=== PATIENT | female | born 1970 | race Caucasian/White ===

== ENCOUNTER → 2016-12-12 | Outpatient (CLI) | payer OTHER, MEDICAID ==
[2016-12-14 14:14] LABS: CMV DNA PCR QUANT Positive < 200 IU/mL (Negative)
== END ==
LOC: OD 13:15
PROVIDERS: ATTEND Internal Medicine
DX: Z94.1 Heart transplant status (principal); Z48.298 Encounter for aftercare following other organ transplant; B25.9 Cytomegaloviral disease, unspecified
CPT/HCPCS: 36415; 87496

== ENCOUNTER → 2016-12-20 | Outpatient (CLI) | payer OTHER, MEDICAID | LOC: OD 13:20 | PROVIDERS: ATTEND Internal Medicine | DX: Z94.1 Heart transplant status (principal); Z48.298 Encounter for aftercare following other organ transplant | CPT/HCPCS: 36415; 87496 ==

== ENCOUNTER → 2016-12-28 | Outpatient (CLI) | payer OTHER, MEDICAID ==
[2017-01-01 14:54] LABS: CMV DNA PCR QUANT Negative (Negative)
== END ==
LOC: OD 16:22
PROVIDERS: ATTEND Internal Medicine
DX: Z94.1 Heart transplant status (principal); Z48.21 Encounter for aftercare following heart transplant
CPT/HCPCS: 36415; 87496

== ENCOUNTER 2017-01-08 09:50 | Emergency (ER) | payer OTHER, MEDICAID ==
[2017-01-08] MEDS ORDERED: NORMAL SALINE 1000 ML 1,000 ML IV ONE (10:52)
[2017-01-08] MEDS ORDERED: ONDANSETRON HCL INJ/PF 4 MG/2 ML SDV IV ONE (10:52)
[2017-01-08] MEDS ORDERED: MORPHINE SULFATE 10 MG/ML INJ IV ONE ×2 (10:53→13:50)
--- NOTE | 2017-01-08 10:58 | ER Document Report ---
ED General - General Chief Complaint: Vomiting Stated Complaint: VOMITING Time seen by provider: 10:54 Mode of Arrival: Ambulatory Information source: Patient Notes: 46-year-old female with abrupt onset of fever to 102 been in this morning along with cough productive of brown sputum with occasional red streaks beginning last night. Patient reports multiple episodes of vomiting this morning but has not vomited anything that clearly looks like blood. She denies diarrhea or melena. She denies dysuria. She is status post heart transplant at [facility] October 10. She reports intermittent sensation of heart fluttering since then and has an appointment at [facility] tomorrow for follow-up. She reports her daughter was diagnosed with flu 2 days ago. Patient reports severe diffuse headache which has been present this morning. She denies earache, sore throat, abdominal pain, back pain for. She reports burning anterior chest pain with coughing but not otherwise. Patient reports she also has history multiple myeloma and is not on treatment for that now because of a heart transplant. 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 She also reports history of ulcerative colitis Physical Exam: General: Alert, appears uncomfortable. HEENT: Normocephalic. Atraumatic. PERRLA. Extraocular movements intact. Oropharynx clear. Neck: Supple. Non-tender. Respiratory: No respiratory distress. Clear and equal breath sounds bilaterally. Well-healed midline incision Cardiovascular: Regular rate and rhythm. Abdominal: Normal Inspection. Soft, non-tender. No distension. Normal Bowel Sounds. Back: Non-tender. No deformity or step off. Extremities: Moves all four extremities. Upper extremities: Normal inspection. Non-tender. Normal color. Normal ROM. Normal temperature. Lower extremities: Normal inspection. Non-tender. No edema. Normal color. Normal ROM. Normal temperature. Neurological: Speech clear mentation normal Psychological: Normal affect. Normal Mood. Skin: Warm. Dry. Normal color. TRAVEL OUTSIDE OF THE [place] IN LAST 30 DAYS: No - Related Data Allergies/Adverse Reactions: codeine [Codeine] Allergy (Verified 04/21/16 11:52) Vomiting Past Medical History - Social History Smoking Status: Never Smoker Chew tobacco use (# tins/day): No Frequency of alcohol use: None Drug Abuse: None Family History: Reviewed & Not Pertinent Patient has suicidal ideation: No Patient has homicidal ideation: No Pulmonary Medical History: Reports: Hx Asthma Renal/ Medical History: Denies: Hx Peritoneal Dialysis GI Medical History: Reports: Hx Gastroesophageal Reflux Disease, Hx Ulcerative Colitis Past Surgical History: Reports: Hx Cardiac Surgery - Heart transplant 2015 at [facility], Hx Section, Hx Cholecystectomy, Hx Orthopedic Surgery - carpal tunnel LT wrist, Hx Tonsillectomy Other: Amyloidosis Ulcerative colitis Multiple myeloma Review of Systems - Review of Systems Constitutional: See HPI EENT: See HPI Cardiovascular: See HPI Respiratory: See HPI Gastrointestinal: See HPI Genitourinary: denies: Burning, Dysuria Musculoskeletal: denies: Back pain Hematologic/Lymphatic: denies: Swollen glands Neurological/Psychological: denies: Weakness, Numbness Physical Exam - Vital signs Vitals: Temp Pulse Resp BP Pulse Ox 99.2 F 92 24 H 140/79 H 96 01/08/17 10:05 01/08/17 10:05 01/08/17 10:05 01/08/17 10:05 01/08/17 10:05 Course - Re-evaluation Re-evalutation: 01/08/17 14:23 Patient reports she was prescribed Tamiflu by her physicians at [facility] and started that last night. Some of the vomiting she is having now could be related to that. She reports she has Zofran at home. Patient is feeling better after nebulizer treatment IV fluids and IV medication. Her headache and believe is related to her fluids and not industrial sales representative of intra-cranial pathology. Patient scuffle with discharge and will continue Zofran and Tamiflu that she or has prescribed and follow with her physicians tomorrow at [facility] 01/08/17 14:26 Her magnesium was noted to be low and this was supplemented prior to discharge. This may be contributing to her sensation of heart fluttering but she is demonstrated no arrhythmia here - Vital Signs Vital signs: Temp Pulse Resp BP Pulse Ox 99.0 F 91 18 148/78 H 98 01/08/17 14:15 01/08/17 14:15 01/08/17 14:15 01/08/17 14:15 01/08/17 14:15 - Laboratory Result Diagrams: 01/08/17 11:09 01/08/17 11:09 Laboratory results interpreted by me: 01/08/17 01/08/17 11:09 11:09 RDW 18.0 H Band Neutrophils % 14 H Lymphocytes % (Manual) 10 L Monocytes % (Manual) 17 H Abs Monocytes (Manual) 1.6 H Est GFR (Non-Af Amer) 59 L Magnesium 1.3 L Influenza A positive - Diagnostic Test Radiology reviewed: Image reviewed, Reports reviewed - EKG Interpretation by Me Additional EKG results interpreted by me: 01/08/17 14:22 EKG reviewed by me so shows sinus at 95 building stonecutter bundle-branch block left anterior fascicular block. Prior EKG predate her heart transplant Discharge - Discharge Clinical Impression: Influenza, Status post heart transplant, Hypomagnesemia Condition: Stable Disposition: HOME, SELF-CARE Additional Instructions: Viral Syndrome The physician has diagnosed a viral infection. Viruses not only cause "colds," but can cause many different symptoms including generalized aching, fever, headache, cough, diarrhea, nausea, vomiting, and fatigue. The treatment, for the most part, is simply relief of symptoms. This means that antibiotics are usually not given. Rest, fluids, pain medications and, occasionally, medication for the specific symptoms that are most bothersome will be prescribed. Use good handwashing to avoid passing the virus to others. Shared toys should be cleaned with disinfectant. Clean the toilets, sinks, and counter surfaces in bathrooms. Launder clothing in hot water. Contact the physician if you develop any new or unusual symptoms such as severe headache, stiff neck, high fever, chest pain, productive cough, or shortness of breath. You should be rechecked if you don't see marked improvement within seven to 10 days. Keep your appointment tomorrow at [facility] Referrals: SVETA GOMEZ MD [Primary Care Provider] - Follow up as needed
[2017-01-08] MEDS ORDERED: IPRATROPIUM/ALBUTEROL 0.5-2.5 MG/3 ML AMPUL NEB ONE (11:49)
[2017-01-08 11:52] LABS: HEMATOCRIT 38.5 % (36.0-47.0); HEMOGLOBIN 12.4 g/dL (12.0-15.5); HGB HCT DIFFERENCE -1.3; MEAN CORPUSCULAR HEMOGLOBIN 30.1 pg (27.0-33.4); MEAN CORPUSCULAR HGB CONC 32.3 g/dL (32.0-36.0); MEAN CORPUSCULAR VOLUME 93 fl (80-97); RED BLOOD COUNT 4.13 10^6/uL (3.72-5.28); WHITE BLOOD COUNT 9.2 10^3/uL (4.0-10.5)
[2017-01-08 12:14] LABS: ALANINE AMINOTRANSFERASE 32 U/L (9-52); ALBUMIN 4.5 g/dL (3.5-5.0); ALKALINE PHOSPHATASE 61 U/L (38-126); ANION GAP 9 (5-19); ASPARTATE AMINO TRANSFERASE 29 U/L (14-36); BILIRUBIN,TOTAL 0.5 mg/dL (0.2-1.3); BLOOD UREA NITROGEN 14 mg/dL (7-20); CALCIUM 9.9 mg/dL (8.4-10.2); CARBON DIOXIDE 28 mmol/L (22-30); CHLORIDE 101 mmol/L (98-107); CREATININE RESULT 1.02 mg/dL (0.52-1.25); GLUCOSE 90 mg/dL (75-110); LIPASE 61.6 U/L (23-300); MAGNESIUM 1.3 mg/dL (1.6-2.3); POTASSIUM 4.2 mmol/L (3.6-5.0); SODIUM 138.3 mmol/L (137-145); TOTAL PROTEIN 7.5 g/dL (6.3-8.2)
[2017-01-08 12:23] LABS: BASOPHILS % (MANUAL) 0 % (0-2); EOSINOPHILS % (MANUAL) 0 % (0-6); LYMPHOCYTES % (MANUAL) 10 % (13-45); TOTAL CELLS COUNTED 100
[2017-01-08 12:24] LABS: ANISOCYTOSIS 1+; TOXIC GRANULATION SLIGHT
[2017-01-08 12:25] LABS: BAND NEUTROPHILS % (MANUAL) 14 % (3-5)
[2017-01-08] MEDS ORDERED: OSELTAMIVIR PHOSPHATE 75 MG CAPSULE PO ONE (12:41)
[2017-01-08 12:53] LABS: APPEARANCE,URINE CLEAR; BILIRUBIN,URINE NEGATIVE (NEGATIVE); GLUCOSE, URINE NEGATIVE (NEGATIVE); KETONES,URINE NEGATIVE (NEGATIVE); LEUKOCYTE ESTERASE,URINE NEGATIVE (NEGATIVE); NITRITE,URINE NEGATIVE (NEGATIVE); PROTEIN,URINE NEGATIVE (NEGATIVE); URINE SPECIFIC GRAVITY 1.013; UROBILINOGEN,URINE NEGATIVE mg/dL (<2.0)
[2017-01-08] MEDS: MAGNESIUM SULFATE/D5W 100 ML IV SCH ×2 (13:04→13:48)
[2017-01-08] MEDS ORDERED: PROMETHAZINE HCL INJ 25 MG/1 ML VIAL IV ONE (13:50)
[2017-01-08 14:16] VITALS: BP 148/78
--- NOTE | 2017-01-08 23:59 | EKG REPORT ---
SEVERITY:- ABNORMAL ECG - SINUS RHYTHM RBBB AND LPFB : Confirmed by: Dre Magaña 08-Jan-2017 23:58:46
== END 2017-01-08 14:40 | disposition home or self-care (01) ==
LOC: ER 09:50
DX: J11.1 Influenza due to unidentified influenza virus with other respiratory manifestations (principal); E83.42 Hypomagnesemia; Z94.1 Heart transplant status; I45.4 Nonspecific intraventricular block; I44.4 Left anterior fascicular block; R05 Cough; R11.10 Vomiting, unspecified; R09.89 Other specified symptoms and signs involving the circulatory and respiratory systems; R51 Headache; R07.89 Other chest pain; E85.9 Amyloidosis, unspecified; C90.00 Multiple myeloma not having achieved remission; J45.909 Unspecified asthma, uncomplicated; Z88.5 Allergy status to narcotic agent; Z87.19 Personal history of other diseases of the digestive system; Z90.49 Acquired absence of other specified parts of digestive tract
CPT/HCPCS: 93005; 96376; 94640; 99284; 96361; 96375; 96365; 36415; 87040; 87086; 83690; 83735; 85025; 87088; 80053; 81001; 87186; 87804; 71010; 93010; J2270; J3475; J2550; J2405; J7030; J7620

== ENCOUNTER 2017-01-11 11:17 | Emergency (ER) | payer OTHER, MEDICAID ==
--- NOTE | 2017-01-11 11:52 | ER Document Report ---
ED Medical Screen (RME) - General Chief Complaint: Nausea Stated Complaint: WEAKNESS Mode of Arrival: Ambulatory Information source: Patient Notes: 46 y/o F presents to ED c/o generalized weakness, chills, and dysuria. Reports was diagnosed with influenza 3 days ago but symptoms persistent. Reports hx of heart transplant 3 months ago. Denies chest pain or sob. I have greeted and performed a rapid initial assessment of this patient. A comprehensive ED assessment and evaluation of the patient, analysis of test results and completion of the medical decision making process will be conducted by additional ED providers. TRAVEL OUTSIDE OF THE [place] IN LAST 30 DAYS: No - Related Data Allergies/Adverse Reactions: codeine [Codeine] Allergy (Verified 01/11/17 11:48) Vomiting Past Medical History - Social History Chew tobacco use (# tins/day): No Frequency of alcohol use: None Drug Abuse: None Pulmonary Medical History: Reports: Hx Asthma Renal/ Medical History: Denies: Hx Peritoneal Dialysis GI Medical History: Reports: Hx Gastroesophageal Reflux Disease, Hx Ulcerative Colitis Past Surgical History: Reports: Hx Cardiac Surgery - Heart transplant 2015 at [place], Hx Section, Hx Cholecystectomy, Hx Orthopedic Surgery - carpal tunnel LT wrist, Hx Tonsillectomy Physical Exam - Vital signs Vitals: Temp Pulse Resp BP Pulse Ox 98.7 F 98 20 104/69 96 01/11/17 11:36 01/11/17 11:36 01/11/17 11:36 01/11/17 11:36 01/11/17 11:36 - General General appearance: Alert In distress: None - Respiratory Respiratory status: No respiratory distress - Cardiovascular Pulses: Normal: Radial Normal capillary refill: Yes Course - Vital Signs Vital signs: Temp Pulse Resp BP Pulse Ox 98.7 F 98 20 104/69 96 01/11/17 11:36 01/11/17 11:36 01/11/17 11:36 01/11/17 11:36 01/11/17 11:36
--- NOTE | 2017-01-11 12:41 | EKG REPORT ---
SEVERITY:- ABNORMAL ECG - SINUS RHYTHM RBBB AND LPFB PROBABLE ANTEROSEPTAL INFARCT, AGE INDETERM : Confirmed by: Dre Magaña 11-Jan-2017 12:40:57
[2017-01-11 12:51] LABS: APPEARANCE,URINE SLIGHTLY-CLOUDY; BILIRUBIN,URINE NEGATIVE (NEGATIVE); GLUCOSE, URINE NEGATIVE (NEGATIVE); KETONES,URINE NEGATIVE (NEGATIVE); LEUKOCYTE ESTERASE,URINE TRACE (NEGATIVE); NITRITE,URINE NEGATIVE (NEGATIVE); PROTEIN,URINE 30 mg/dL (NEGATIVE); UROBILINOGEN,URINE NEGATIVE mg/dL (<2.0)
[2017-01-11 12:52] LABS: HEMATOCRIT 40.3 % (36.0-47.0); HEMOGLOBIN 13.1 g/dL (12.0-15.5); MEAN CORPUSCULAR HGB CONC 32.6 g/dL (32.0-36.0); MEAN CORPUSCULAR VOLUME 92 fl (80-97); RED BLOOD COUNT 4.38 10^6/uL (3.72-5.28); RED CELL DISTRIBUTION WIDTH 17.7 % (11.5-14.0); WHITE BLOOD COUNT 10.4 10^3/uL (4.0-10.5)
[2017-01-11 13:09] LABS: ALANINE AMINOTRANSFERASE 44 U/L (9-52); ALKALINE PHOSPHATASE 81 U/L (38-126); ANION GAP 13 (5-19); ASPARTATE AMINO TRANSFERASE 26 U/L (14-36); BILIRUBIN,TOTAL 0.5 mg/dL (0.2-1.3); BLOOD UREA NITROGEN 33 mg/dL (7-20); CALCIUM 10.1 mg/dL (8.4-10.2); CARBON DIOXIDE 26 mmol/L (22-30); CHLORIDE 98 mmol/L (98-107); CREATININE RESULT 2.04 mg/dL (0.52-1.25); GLUCOSE 116 mg/dL (75-110); MAGNESIUM 1.4 mg/dL (1.6-2.3); POTASSIUM 4.5 mmol/L (3.6-5.0); SODIUM 136.5 mmol/L (137-145); TOTAL PROTEIN 7.8 g/dL (6.3-8.2)
[2017-01-11] MEDS ORDERED: NORMAL SALINE 1000 ML 1,000 ML IV ONE ×2 (13:22→16:30)
--- NOTE | 2017-01-11 13:23 | ER Document Report ---
ED Respiratory Problem - General Chief Complaint: Nausea Stated Complaint: WEAKNESS Time seen by provider: 13:23 Mode of Arrival: Ambulatory Information source: Patient Notes: 46 yo female c/o worsening heart flutters, weakness, low apetite, nausea, and congested cough since saturday, had vomiting and diarrhea until saturday. Used Albuterol MDI helps her get stronger breaths is SOB. Hx asthma, amyloidosis, Heart failure ( transplant at [facility] 10-10-16), taje immunosupressants, Ulcerative colitis, asthma, fibromyalgia, multiple myoloma. Dx Influenza A on in ER has been taking tamiflu 75mg bid since then. No hx DE. Urine culture from January 08 shows 50-60,000 colonies of Escherichia coli that was not sensitive to Cipro that she took 4 weeks ago. She still has symptoms of dysuria frequency and pelvic discomfort. She was told to contact her transplant doctor prior to any medications the urine was sensitive to Rocephin I will wait until the chest x-ray is done. Taking septra (for transplant) but not sensitive to that either. TRAVEL OUTSIDE OF THE [place] IN LAST 30 DAYS: No - Related Data Allergies/Adverse Reactions: codeine [Codeine] Allergy (Verified 01/11/17 11:48) Vomiting Past Medical History - General Information source: Patient - Social History Smoking Status: Never Smoker Chew tobacco use (# tins/day): No Frequency of alcohol use: None Drug Abuse: None Lives with: Family Family History: Reviewed & Not Pertinent Patient has suicidal ideation: No Patient has homicidal ideation: No - Medical History Notes: multiple myoloma - Past Medical History Cardiac Medical History: Reports: Hx Congestive Heart Failure - prior to heart transplant Pulmonary Medical History: Reports: Hx Asthma Renal/ Medical History: Denies: Hx Peritoneal Dialysis GI Medical History: Reports: Hx Gastroesophageal Reflux Disease, Hx Ulcerative Colitis Past Surgical History: Reports: Hx Cardiac Surgery - Heart transplant 2015 at [place], Hx Section, Hx Cholecystectomy, Hx Orthopedic Surgery - carpal tunnel LT wrist, Hx Tonsillectomy Review of Systems - Review of Systems Constitutional: See HPI EENT: See HPI Cardiovascular: No symptoms reported Respiratory: See HPI Gastrointestinal: No symptoms reported Genitourinary: No symptoms reported Female Genitourinary: No symptoms reported Musculoskeletal: No symptoms reported Skin: No symptoms reported Hematologic/Lymphatic: No symptoms reported Neurological/Psychological: No symptoms reported Physical Exam - Vital signs Vitals: Temp Pulse Resp BP Pulse Ox 98.7 F 98 20 104/69 96 01/11/17 11:36 01/11/17 11:36 01/11/17 11:36 01/11/17 11:36 01/11/17 11:36 Interpretation: Normal - General General appearance: Alert, Other - mild pale - HEENT Head: Normocephalic, Atraumatic Eyes: Normal Conjunctiva: Normal Pupils: PERRL Tympanic membrane: Normal Mucous membranes: Dry Neck: Supple. No: Lymphadenopathy - Respiratory Respiratory status: No respiratory distress Chest status: Nontender Breath sounds: Normal, Productive cough, Wheezing - insp/exp coarse, clears with cough. No: Rales Chest palpation: Normal - Cardiovascular Rhythm: Regular Heart sounds: Normal auscultation Murmur: No - Abdominal Inspection: Normal Distension: No distension Bowel sounds: Normal Tenderness: Nontender Organomegaly: No organomegaly - Back Back: Normal, Nontender. No: CVA tenderness - Extremities General upper extremity: Normal inspection, Nontender, Normal color, Normal ROM , Normal temperature General lower extremity: Normal inspection, Nontender, Normal color, Normal ROM , Normal temperature, Normal weight bearing. No: Carol's sign - Neurological Neuro grossly intact: Yes Cognition: Normal Orientation: AAOx4 [place] Coma Scale Eye Opening: Spontaneous [place] Coma Scale Verbal: Oriented [place] Coma Scale Motor: Obeys Commands [place] Coma Scale Total: 15 Speech: Normal Motor strength normal: LUE, RUE, LLE, RLE Sensory: Normal - Psychological Associated symptoms: Normal affect, Normal mood - Skin Skin Temperature: Warm Skin Moisture: Dry Skin Color: Normal Skin irregularity: negative: Rash Course - Re-evaluation Re-evalutation: 01/11/17 13:[address] bautista about the EKG, conduction changes due to heart transplant, no change from 01-08-17. NSR, RBBB and LPFB. 01/11/17 15:31 chest xray is negative. insp/exp wheeze bilateral. consult dr. leon, calling dr. ganesh grayson the cardiac transplant. rr 18, pulse ox 98 %. 01/11/17 15:42 dr ganesh grayson will admit pt to [facility] transplant service for dr. jeniffer Soni. I asked him about steroids, 60mg solumedrol, rocephin 1 gram OK, urine culture pengind, no to getting sputum culture, they will do it at [facility] 01/11/17 16:35 [facility] has room assignemtn bed [id number], [facility]. trying to arrange transport. 01/11/17 18:24 pt up to bathroom, looks better, awaiting word on jacques eta to get pt and take to [facility] [id number] 01/11/17 18:59 lungs less wheezing, has eaten some. tylenol added for fever. to 99.9 - Vital Signs Vital signs: Temp Pulse Resp BP Pulse Ox 99.5 F 98 25 H 117/75 95 01/11/17 19:00 01/11/17 11:36 01/11/17 17:01 01/11/17 18:01 01/11/17 18:01 - Laboratory Result Diagrams: 01/11/17 12:19 01/11/17 12:19 Laboratory results interpreted by me: 01/11/17 01/11/17 01/11/17 12:19 12:19 12:19 RDW 17.7 H Band Neutrophils % 6 H Lymphocytes % (Manual) 2 L Monocytes % (Manual) 15 H Metamyelocytes % 2 H Abs Neuts (Manual) 8.5 H Abs Lymphs (Manual) 0.3 L Abs Monocytes (Manual) 1.6 H Sodium 136.5 L BUN 33 H Creatinine 2.04 H Est GFR ( Amer) 32 L Est GFR (Non-Af Amer) 26 L Glucose 116 H Magnesium 1.4 L NT-Pro-B Natriuret Pep Urine Protein 30 H Ur Leukocyte Esterase TRACE H 01/11/17 12:19 RDW Band Neutrophils % Lymphocytes % (Manual) Monocytes % (Manual) Metamyelocytes % Abs Neuts (Manual) Abs Lymphs (Manual) Abs Monocytes (Manual) Sodium BUN Creatinine Est GFR ( Amer) Est GFR (Non-Af Amer) Glucose Magnesium NT-Pro-B Natriuret Pep 959 H Urine Protein Ur Leukocyte Esterase - Transfer of Care Care transferred to following provider: Jacques [address] at 1901 Discharge - Discharge Clinical Impression: Influenza due to influenza virus, type A, human, Acute kidney injury, Dehydration, Bronchitis, Urinary tract infection Condition: Stable Disposition: [facility] Referrals: SVETA GOMEZ MD [Primary Care Provider] - Follow up as needed
[2017-01-11 13:27] LABS: BAND NEUTROPHILS % (MANUAL) 6 % (3-5); BASOPHILS % (MANUAL) 0 % (0-2); EOSINOPHILS % (MANUAL) 0 % (0-6); LYMPHOCYTES % (MANUAL) 2 % (13-45); TOTAL CELLS COUNTED 100
[2017-01-11 13:30] LABS: ANISOCYTOSIS 1+
[2017-01-11] MEDS ORDERED: IPRATROPIUM/ALBUTEROL 0.5-2.5 MG/3 ML AMPUL NEB ONE (13:34)
[2017-01-11 14:44] LABS: CREATINE KINASE MB 0.85 ng/mL (<4.55)
[2017-01-11 14:48] LABS: TROPONIN I 0.018 ng/mL
[2017-01-11] MEDS ORDERED: ALBUTEROL SULFATE 0.083% NEB 2.5 MG/3 ML AMPUL NEB ONE (15:31)
[2017-01-11] MEDS ORDERED: CEFTRIAXONE 1 GM/D5W RTU 50 ML IV ONE (15:37)
[2017-01-11] MEDS ORDERED: METHYLPREDNISOLONE INJ 125 MG/2 ML SDV IV ONE (15:40)
[2017-01-11] MEDS ORDERED: OSELTAMIVIR PHOSPHATE 75 MG CAPSULE PO ONE (17:36)
[2017-01-11] MEDS ORDERED: ACETAMINOPHEN 325 MG TABLET PO ONE (18:50)
--- NOTE | 2017-01-11 23:27 | ER Document Report ---
Doctor's Note Notes: 01/11/17 23:27 Patient is resting comfortably, stable vital signs, no complaints at present time, transport team is in the emergency room to take patient to [place] for further evaluation and treatment, patient stable for transport
[2017-01-12 09:05] VITALS: BP 97/59
== END 2017-01-11 23:00 | disposition short-term general hospital (02) ==
LOC: ER 11:17
DX: J11.1 Influenza due to unidentified influenza virus with other respiratory manifestations (principal); N17.9 Acute kidney failure, unspecified; N39.0 Urinary tract infection, site not specified; I45.2 Bifascicular block; I49.8 Other specified cardiac arrhythmias; E86.0 Dehydration; R53.1 Weakness; R63.0 Anorexia; R11.0 Nausea; R05 Cough; R50.9 Fever, unspecified; R06.02 Shortness of breath; J45.909 Unspecified asthma, uncomplicated; Z94.1 Heart transplant status; Z85.79 Personal history of other malignant neoplasms of lymphoid, hematopoietic and related tissues; Z79.2 Long term (current) use of antibiotics; Z88.5 Allergy status to narcotic agent
CPT/HCPCS: 93005; 94640 ×2; 99285; 96361; 96375; 96365; 36415; 87040; 82553; 82550; 83735; 85025; 80053; 81001; 84484; 83605; 83880; 71020; 93010; J2930; J3490; J7030; J0696; J7620

== ENCOUNTER 2017-03-05 11:49 | Emergency (ER) | payer MEDICARE, OTHER, MEDICAID ==
[2017-03-05] MEDS ORDERED: ONDANSETRON 4 MG TAB.RAPDIS PO ONE (12:52)
--- NOTE | 2017-03-05 12:54 | ER Document Report ---
ED Medical Screen (RME) - General Chief Complaint: Weakness Stated Complaint: NAUSEA,LETHARGIC Time seen by provider: 12:54 Mode of Arrival: Wheelchair Information source: Patient Notes: 46 yo post heart transplant that takes immunosuppresants dx uti at [facility] at heart recheck visit last week. Taking antibiotic sensitive to the urine culture , changed recently. Just doesn't feel well, the low abdominal pain radiated to low back, now has some diarrhea, generalized bodyaches, nausea, vomited. TRAVEL OUTSIDE OF THE U[place]S. IN LAST 30 DAYS: No - Related Data Allergies/Adverse Reactions: codeine [Codeine] Allergy (Verified 03/05/17 11:57) Vomiting Past Medical History - Past Medical History Cardiac Medical History: Reports: Hx Congestive Heart Failure - prior to heart transplant Pulmonary Medical History: Reports: Hx Asthma Renal/ Medical History: Denies: Hx Peritoneal Dialysis GI Medical History: Reports: Hx Gastroesophageal Reflux Disease, Hx Ulcerative Colitis Past Surgical History: Reports: Hx Cardiac Surgery - Heart transplant 2015 at [place], Hx Section, Hx Cholecystectomy, Hx Orthopedic Surgery - carpal tunnel LT wrist, Hx Tonsillectomy - Immunizations Hx Diphtheria, Pertussis, Tetanus Vaccination: Yes Physical Exam - Vital signs Vitals: Temp Pulse Resp BP Pulse Ox 98.5 F 98 18 150/87 H 96 03/05/17 11:59 03/05/17 11:59 03/05/17 11:59 03/05/17 11:59 03/05/17 11:59 Course - Vital Signs Vital signs: Temp Pulse Resp BP Pulse Ox 98.5 F 98 18 150/87 H 96 03/05/17 11:59 03/05/17 11:59 03/05/17 11:59 03/05/17 11:59 03/05/17 11:59
[2017-03-05 13:26] LABS: HEMATOCRIT 31.9 % (36.0-47.0); HEMOGLOBIN 10.6 g/dL (12.0-15.5); HGB HCT DIFFERENCE -0.1; MEAN CORPUSCULAR HEMOGLOBIN 30.2 pg (27.0-33.4); MEAN CORPUSCULAR HGB CONC 33.1 g/dL (32.0-36.0); MEAN CORPUSCULAR VOLUME 91 fl (80-97); RED CELL DISTRIBUTION WIDTH 13.3 % (11.5-14.0); WHITE BLOOD COUNT 9.2 10^3/uL (4.0-10.5)
[2017-03-05 13:32] LABS: APPEARANCE,URINE CLEAR; BILIRUBIN,URINE NEGATIVE (NEGATIVE); GLUCOSE, URINE NEGATIVE (NEGATIVE); KETONES,URINE NEGATIVE (NEGATIVE); LEUKOCYTE ESTERASE,URINE NEGATIVE (NEGATIVE); NITRITE,URINE POSITIVE (NEGATIVE); PROTEIN,URINE 30 mg/dL (NEGATIVE); URINE SPECIFIC GRAVITY 1.016
[2017-03-05 13:38] LABS: ALANINE AMINOTRANSFERASE 32 U/L (9-52); ALBUMIN 4.4 g/dL (3.5-5.0); ALKALINE PHOSPHATASE 69 U/L (38-126); ANION GAP 14 (5-19); ASPARTATE AMINO TRANSFERASE 24 U/L (14-36); BILIRUBIN,TOTAL 1.1 mg/dL (0.2-1.3); BLOOD UREA NITROGEN 27 mg/dL (7-20); CALCIUM 9.9 mg/dL (8.4-10.2); CARBON DIOXIDE 23 mmol/L (22-30); CHLORIDE 103 mmol/L (98-107); CREATININE RESULT 2.49 mg/dL (0.52-1.25); GLUCOSE 117 mg/dL (75-110); SODIUM 140.3 mmol/L (137-145); TOTAL PROTEIN 9.6 g/dL (6.3-8.2)
[2017-03-05 13:54] LABS: BASOPHILS % (MANUAL) 0 % (0-2); EOSINOPHILS % (MANUAL) 0 % (0-6); LYMPHOCYTES % (MANUAL) 7 % (13-45); TOTAL CELLS COUNTED 100
[2017-03-05 13:55] LABS: RBC MORPHOLOGY COMMENT NORMO-CYTIC/CHROMIC
[2017-03-05] MEDS ORDERED: NORMAL SALINE 1000 ML 1,000 ML IV ONE (14:59)
[2017-03-05] MEDS ORDERED: CEFTRIAXONE 1 GM/D5W RTU 50 ML IV ONE (15:01)
--- NOTE | 2017-03-05 15:07 | ER Document Report ---
ED General - General Chief Complaint: Weakness Stated Complaint: NAUSEA,LETHARGIC Mode of Arrival: Wheelchair Notes: Patient had a heart transplant at [facility] 5 months ago. Patient is here because she's been feeling sick for the past week. She is having some lower mid abdominal pains. Also painful with urination. She was seen at [facility] on and a urinalysis was obtained. She was started on Augmentin on Saturday , but had nausea and vomiting on Saturday and based upon her culture results, she was changed to Macrobid twice a day starting Saturday. She's continued to have urinary discomfort and lower abdominal pains. Appetite has been poor with limited oral intake of food or fluids. May have had a slight fever. She is now having pains in her back/flank regions. Patients medical history is more complicated because she has amyloidosis and also has multiple myeloma and is awaiting stem cell transplant. She also has ulcerative colitis. History of cholecystectomy and C-sections. Surgery for carpal tunnel syndrome. TRAVEL OUTSIDE OF THE [place] IN LAST 30 DAYS: No - Related Data Allergies/Adverse Reactions: codeine [Codeine] Allergy (Verified 03/05/17 11:57) Vomiting Past Medical History - General Information source: Patient - Social History Smoking Status: Never Smoker Frequency of alcohol use: None Drug Abuse: None Family History: Reviewed & Not Pertinent Patient has suicidal ideation: No Patient has homicidal ideation: No - Past Medical History Cardiac Medical History: Reports: Hx Congestive Heart Failure - prior to heart transplant Pulmonary Medical History: Reports: Hx Asthma Malignancy Medical History: Reports: Other - History of multiple myeloma GI Medical History: Reports: Hx Gastroesophageal Reflux Disease, Hx Ulcerative Colitis Past Surgical History: Reports: Hx Cardiac Surgery - Heart transplant 2015 at [facility], Hx Section, Hx Cholecystectomy, Hx Orthopedic Surgery - carpal tunnel LT and RT wrist, Hx Tonsillectomy - Immunizations Hx Diphtheria, Pertussis, Tetanus Vaccination: Yes Review of Systems - Review of Systems Notes: REVIEW OF SYSTEMS: CONSTITUTIONAL : Feels that she has had a low-grade fever. EENT: Denies eye, ear, nose or mouth or throat pain or other symptoms. CARDIOVASCULAR: Denies chest pain. RESPIRATORY: Denies cough, chest congestion, or shortness of breath. GASTROINTESTINAL: See history of present illness. GENITOURINARY: See history of present illness.. MUSCULOSKELETAL: Denies neck pain. Denies joint pain or swelling. SKIN: Denies rash or skin lesions. NEUROLOGICAL: Denies LOC or altered mental status. Denies headache. Denies sensory loss or motor deficits. ALL OTHER SYSTEMS REVIEWED AND NEGATIVE. Physical Exam - Vital signs Vitals: Temp Pulse Resp BP Pulse Ox 98.5 F 98 18 150/87 H 96 03/05/17 11:59 03/05/17 11:59 03/05/17 11:59 03/05/17 11:59 03/05/17 11:59 Interpretation: Normal - Notes Notes: PHYSICAL EXAMINATION: GENERAL: Well-appearing, in no acute distress. Vital signs are normal. HEAD: Atraumatic, normocephalic. ENT: oropharynx clear without exudates. Moist mucous membranes. NECK: Normal range of motion, supple. LUNGS: Breath sounds clear and equal bilaterally. HEART: Regular rate and rhythm without murmurs. ABDOMEN: Soft, nontender. No guarding or rebound. BACK: No tenderness throughout entire back. EXTREMITIES: Normal range of motion without pain. NEUROLOGICAL: Normal speech. Normal sensory, motor, and reflex exams. Awake, alert, and oriented x3. Cranial nerves normal. PSYCH: Normal mood, normal affect. SKIN: Warm, dry, no rashes. Course - Re-evaluation Re-evalutation: 03/05/17 15:06 Spoke with someone with the transplant coordinators role at [facility] and the plan is to give the patient a dose of Rocephin IV, some IV fluids, and transfer her there for inpatient care. 03/05/17 16:33 Patient does have a bed assignment and will be transferred to [facility]. - Vital Signs Vital signs: Temp Pulse Resp BP Pulse Ox 98.9 F 98 18 141/81 H 94 03/05/17 17:01 03/05/17 11:59 03/05/17 17:01 03/05/17 17:01 03/05/17 17:01 - Laboratory Result Diagrams: 03/05/17 12:55 03/05/17 12:55 Laboratory results interpreted by me: 03/05/17 03/05/17 03/05/17 12:55 12:55 12:55 RBC 3.50 L Hgb 10.6 L Hct 31.9 L Seg Neuts % (Manual) 86 H Lymphocytes % (Manual) 7 L BUN 27 H Creatinine 2.49 H Est GFR ( Amer) 25 L Est GFR (Non-Af Amer) 21 L Glucose 117 H Lactic Acid 0.6 L Total Protein 9.6 H Urine Protein Urine Nitrite Urine Urobilinogen 03/05/17 12:55 RBC Hgb Hct Seg Neuts % (Manual) Lymphocytes % (Manual) BUN Creatinine Est GFR ( Amer) Est GFR (Non-Af Amer) Glucose Lactic Acid Total Protein Urine Protein 30 H Urine Nitrite POSITIVE H Urine Urobilinogen 2.0 H Discharge - Discharge Clinical Impression: Dehydration, Renal insufficiency Urinary tract infection Qualifiers: Urinary tract infection type: acute cystitis Hematuria presence: without hematuria Qualified Code(s): N30.00 - Acute cystitis without hematuria Condition: Stable Disposition: [facility]
[2017-03-05] MEDS ORDERED: MORPHINE SULFATE 10 MG/ML INJ IV ONE (15:20)
[2017-03-05] MEDS ORDERED: ONDANSETRON HCL INJ/PF 4 MG/2 ML SDV IV ONE (15:20)
--- NOTE | 2017-03-05 17:32 | EKG REPORT ---
SEVERITY:- ABNORMAL ECG - SINUS RHYTHM RIGHT BUNDLE BRANCH BLOCK NONSPECIFIC ST-T CHANGES- INFERIOR LEADS : Confirmed by: Marko Duque MD 05-Mar-2017 17:32:01
[2017-03-05 17:56] VITALS: BP 124/67
== END 2017-03-05 18:00 | disposition short-term general hospital (02) ==
LOC: ER 11:49
DX: E86.0 Dehydration (principal); N28.9 Disorder of kidney and ureter, unspecified; R53.1 Weakness; R11.0 Nausea; R53.83 Other fatigue; R30.9 Painful micturition, unspecified
CPT/HCPCS: 93005; 99285; 96361; 96375; 96365; 36415; 87040; 87086; 85025; 87088; 80053; 81001; 87186; 83605; 71020; 93010; A9270; J2270; J2405; J7030; J0696; S0119

== ENCOUNTER 2017-03-31 12:09 | Emergency (ER) | payer MEDICARE, OTHER, MEDICAID ==
[2017-03-31] MEDS: NORMAL SALINE 1000 ML 1,000 ML IV PRN ×2 (12:50→13:58)
[2017-03-31] MEDS ORDERED: OXYCODONE-ACETAMINOPHEN 5-325 MG TABLET PO ONE (12:59)
[2017-03-31 13:11] LABS: HEMATOCRIT 23.8 % (36.0-47.0); HEMOGLOBIN 8.1 g/dL (12.0-15.5); HGB HCT DIFFERENCE 0.5; MEAN CORPUSCULAR HEMOGLOBIN 30.5 pg (27.0-33.4); MEAN CORPUSCULAR HGB CONC 34.1 g/dL (32.0-36.0); MEAN CORPUSCULAR VOLUME 90 fl (80-97); RED BLOOD COUNT 2.65 10^6/uL (3.72-5.28); RED CELL DISTRIBUTION WIDTH 13.4 % (11.5-14.0); WHITE BLOOD COUNT 5.4 10^3/uL (4.0-10.5)
[2017-03-31 13:29] LABS: ALANINE AMINOTRANSFERASE 30 U/L (9-52); ALBUMIN 2.5 g/dL (3.5-5.0); ALKALINE PHOSPHATASE 160 U/L (38-126); ANION GAP 11 (5-19); ASPARTATE AMINO TRANSFERASE 23 U/L (14-36); BILIRUBIN,DIRECT 0.4 mg/dL (0.0-0.4); BILIRUBIN,TOTAL 0.4 mg/dL (0.2-1.3); BLOOD UREA NITROGEN 66 mg/dL (7-20); CALCIUM 8.5 mg/dL (8.4-10.2); CARBON DIOXIDE 20 mmol/L (22-30); CHLORIDE 104 mmol/L (98-107); GLUCOSE 102 mg/dL (75-110); SODIUM 134.6 mmol/L (137-145); TOTAL PROTEIN 8.1 g/dL (6.3-8.2)
[2017-03-31 13:36] LABS: CREATININE RESULT 4.17 mg/dL (0.52-1.25)
[2017-03-31 13:43] LABS: BAND NEUTROPHILS % (MANUAL) 8 % (3-5); BASOPHILS % (MANUAL) 0 % (0-2); EOSINOPHILS % (MANUAL) 0 % (0-6); LYMPHOCYTES % (MANUAL) 10 % (13-45); NUCLEATED RED BLOOD CELLS 1 /100 WBC (0); TOTAL CELLS COUNTED 100
[2017-03-31 13:44] LABS: RBC MORPHOLOGY COMMENT NORMO-CYTIC/CHROMIC; TOXIC GRANULATION 1+
--- NOTE | 2017-03-31 14:07 | ER Document Report ---
ED General - General Chief Complaint: Abdominal Pain Stated Complaint: ABDOMINAL PAIN TRAVEL OUTSIDE OF THE [place] IN LAST 30 DAYS: No - Related Data Allergies/Adverse Reactions: codeine [Codeine] Allergy (Verified 03/31/17 12:56) Vomiting Past Medical History - Social History Smoking Status: Never Smoker Frequency of alcohol use: None Drug Abuse: None Family History: Reviewed & Not Pertinent - Past Medical History Cardiac Medical History: Reports: Hx Congestive Heart Failure - prior to heart transplant Pulmonary Medical History: Reports: Hx Asthma Renal/ Medical History: Denies: Hx Peritoneal Dialysis GI Medical History: Reports: Hx Gastroesophageal Reflux Disease, Hx Ulcerative Colitis Past Surgical History: Reports: Hx Cardiac Surgery - Heart transplant 2015 at [facility], Hx Section, Hx Cholecystectomy, Hx Orthopedic Surgery - carpal tunnel LT and RT wrist, Hx Tonsillectomy - Immunizations Hx Diphtheria, Pertussis, Tetanus Vaccination: Yes Physical Exam - Vital signs Vitals: Resp 20 03/31/17 12:15 Course - Re-evaluation Re-evalutation: 03/31/17 14:06 flaco giron, hemoccult positive. hgb 8.1, I spoke with physician but he had emergency to attend to emergency and will call back 03/31/17 15:25 Flaco paged again 03/31/17 15:49 Dr Nascimento called back, accepts under transplant service, Dr. Soni. - Vital Signs Vital signs: Temp Pulse Resp BP Pulse Ox 97.0 F 99 18 107/56 L 96 03/31/17 12:19 03/31/17 12:19 03/31/17 12:19 03/31/17 12:19 03/31/17 12:19 - Laboratory Result Diagrams: 03/31/17 12:40 03/31/17 12:40 Laboratory results interpreted by me: 03/31/17 03/31/17 03/31/17 12:40 12:40 12:40 RBC 2.65 L Hgb 8.1 L Hct 23.8 L Band Neutrophils % 8 H Lymphocytes % (Manual) 10 L Monocytes % (Manual) 16 H PT 17.0 H Sodium 134.6 L Carbon Dioxide 20 L BUN 66 H Creatinine 4.17 H Est GFR ( Amer) 14 L Est GFR (Non-Af Amer) 12 L Alkaline Phosphatase 160 H Albumin 2.5 L Discharge - Discharge Clinical Impression: History of heart transplant Chronic kidney disease Qualifiers: Chronic kidney disease stage: stage 3 (moderate) Qualified Code(s): N18.3 - Chronic kidney disease, stage 3 (moderate) Gastrointestinal hemorrhage Qualifiers: GI bleed type/associated pathology: unspecified gastrointestinal hemorrhage type Qualified Code(s): K92.2 - Gastrointestinal hemorrhage, unspecified Condition: Stable Disposition: WARE
--- NOTE | 2017-03-31 16:34 | EKG REPORT ---
SEVERITY:- ABNORMAL ECG - SINUS TACHYCARDIA RIGHT BUNDLE BRANCH BLOCK NONSPECIFIC ST-T CHANGES- INFERIOR-LATERAL LEADS : Confirmed by: Marko Duque MD 31-Mar-2017 16:33:17
[2017-03-31] MEDS ORDERED: ONDANSETRON HCL INJ/PF 4 MG/2 ML SDV IV ONE (19:55)
[2017-03-31 20:24] VITALS: BP 121/58
== END 2017-03-31 20:30 | disposition short-term general hospital (02) ==
LOC: ER 12:09
DX: K92.2 Gastrointestinal hemorrhage, unspecified (principal); N18.3 Chronic kidney disease, stage 3 (moderate); Z94.1 Heart transplant status; R10.9 Unspecified abdominal pain; J45.909 Unspecified asthma, uncomplicated; Z90.49 Acquired absence of other specified parts of digestive tract
CPT/HCPCS: 93005; 99285; 96374; 86900; 86901; 36415; 86850; 85025; 85610; 82272; 80053; 93010; A9270; J2405; J7030